=== PATIENT | female | born 1990 | race African-American/Black ===

== ENCOUNTER 2018-03-12 15:29 | Emergency (ER) | payer BC ==
[~2018-03-12] VITALS: Ht 162.6 cm; Wt 84.5 kg
[~2018-03-12 15:29] MED LIST: AMOXICILLIN500 MG OR; AMOXICILLIN500 MG PO; AMOXICILLIN875 MG OR; CIPROFLOXACN500 MG PO; FIORICET PO; NAPROSYN500 MG PO; NO; PROMETHAZINE25 MG OR; TRI-SPRINTEC PO; ULTRAM50 M1 PO; YAZ1 TAB OR
[2018-03-12] MEDS ORDERED: ULTRAM50 M1 PO (16:39)
[2018-03-12] MEDS ORDERED: AMOXICILLIN500 MG PO (16:39)
[2018-03-12 16:40] VITALS: BP 128/85
== END 2018-03-12 16:47 | disposition home or self-care (01) | DRG 153 ==
LOC: ED 15:29
DX: J02.9 Acute pharyngitis, unspecified (principal)

== ENCOUNTER 2018-05-04 07:33 | Emergency (ER) | payer BC ==
[~2018-05-04] VITALS: Ht 162.6 cm; Wt 75.0 kg
[2018-05-04 07:56] LABS: URINE BILIRUBIN - DIPSTICK NEGATIVE (NEGATIVE); URINE BLOOD DIPSTICK TRACE-LYSED (NEGATIVE); URINE COLOR YELLOW; URINE GLUCOSE - DIPSTICK NEGATIVE (NEGATIVE); URINE KETONE NEGATIVE (NEGATIVE); URINE PH 5.5 (4.5-8.0); URINE PROTEIN - DIPSTICK NEGATIVE (NEG-TRACE); URINE UROBILINOGEN - DIPSTICK 0.2 E.U./dL (0.2)
[2018-05-04 07:58] LABS: URINE CLARITY CLOUDY; URINE LEUK ESTERASE MODERATE (NEGATIVE)
[2018-05-04 08:00] LABS: URINE NITRITE - DIPSTICK NEGATIVE (Negative)
[2018-05-04 08:02] LABS: URINE BACTERIA RARE hpf; URINE EPITHELIAL CELLS RARE EPI/hpf (0-FEW); URINE RBC 0-2 RBC/hpf (0-5); URINE WBC TNTC WBC/hpf (0-5)
[2018-05-04] MEDS ORDERED: CEPHALEXIN500 M1 PO (08:05)
[2018-05-04 08:19] VITALS: BP 118/63
== END 2018-05-04 08:25 | disposition home or self-care (01) | DRG 690 ==
LOC: ED 07:33
PROVIDERS: Family Medicine
DX: N39.0 Urinary tract infection, site not specified (principal)

== ENCOUNTER 2018-08-15 22:54 | Emergency (ER) | payer BC ==
[~2018-08-15] VITALS: Ht 162.6 cm; Wt 84.0 kg
[~2018-08-15 22:54] MED LIST changes: +CEPHALEXIN500 M1 PO
[2018-08-15] MEDS ORDERED: AUGMENTIN875TAB PO (23:24)
[2018-08-15 23:45] VITALS: BP 125/80
== END 2018-08-15 23:46 | disposition home or self-care (01) | DRG 605 ==
LOC: ED 22:54
DX: S81.851A Open bite, right lower leg, initial encounter (principal); L08.9 Local infection of the skin and subcutaneous tissue, unspecified; Y04.1XXA Assault by human bite, initial encounter; Y93.01 Activity, walking, marching and hiking; Y92.414 Local residential or business street as the place of occurrence of the external cause

== ENCOUNTER 2018-10-04 23:35 | Emergency (ER) | payer OTHER, BC ==
[~2018-10-04] VITALS: Ht 162.6 cm; Wt 83.0 kg
[~2018-10-04 23:35] MED LIST changes: +AUGMENTIN875TAB PO
[2018-10-05] MEDS ORDERED: NAPROSYN500 MG PO (00:23)
[2018-10-05] MEDS ORDERED: AMOX/K CLAV875 M1 PO (00:23)
[2018-10-05 00:44] VITALS: BP 122/82
== END 2018-10-05 00:44 | disposition left against medical advice (07) | DRG 605 ==
LOC: ED 23:35
DX: S51.851A Open bite of right forearm, initial encounter (principal); Y04.1XXA Assault by human bite, initial encounter; Y93.89 Activity, other specified; Y92.89 Other specified places as the place of occurrence of the external cause; Y99.0 Civilian activity done for income or pay; Z91.19 Patient's noncompliance with other medical treatment and regimen

== ENCOUNTER 2018-10-24 15:17 | Emergency (ER) | payer BC ==
[~2018-10-24] VITALS: Ht 162.6 cm; Wt 84.0 kg
[~2018-10-24 15:17] MED LIST changes: +AMOX/K CLAV875 M1 PO
[2018-10-24] MEDS ORDERED: TAM75CAP PO (16:09)
[2018-10-24] MEDS ORDERED: ONDANSETRON4 MG PO (16:09)
[2018-10-24 16:15] VITALS: BP 132/66
== END 2018-10-24 16:20 | disposition home or self-care (01) | DRG 153 ==
LOC: ED 15:17
DX: J11.1 Influenza due to unidentified influenza virus with other respiratory manifestations (principal)